=== PATIENT | female | born 1990 | race Caucasian/White ===

== ENCOUNTER 2023-11-15 00:19 | Emergency (ER) | payer OTHER, SELFPAY ==
[2023-11-15 00:25] VITALS: BP 130/80
--- NOTE | 2023-11-15 00:39 | ED.GENMED ---
History of Present Illness
General
Chief Complaint: Eye Problems
Source: patient
Exam Limitations: none
Time Seen by Provider: 11/15/23 00:30
Travel History
Have you had any contact with someone who has COVID-19?: No
Do you have any symptoms of coronavirus? Fever > 100 degrees, chills, cough, shortness of breath, sore throat, loss of taste or smell, muscle aches, or headache?: No
History of Present Illness
History of Present Illness:
See MDM
Past History
Past History
ED Past Medical History: Hypothyroidism
ED Past Surgical History: Gynecological
Social History
Tobacco: Non-smoker
Alcohol: None
Phy Exam
Physical Exam
Physical Exam:
See MDM
Course
Orders/Labs/Results
Orders:
Orders
11/15/23 00:39
Ciprofloxacin HCl [Ciloxan 0.3% Ophthalmic Solution] See Dose Instructions OPHTH NOW STA
Vital Signs
Initial and Last Documented VS:
Initial Vital Signs
Temp Pulse Resp BP Pulse Ox
98.2 F 84 22 130/80 100
11/15/23 00:25 11/15/23 00:25 11/15/23 00:25 11/15/23 00:25 11/15/23 00:25
Last Documented Vital Signs
Temp Pulse Resp BP Pulse Ox
98.2 F 84 22 130/80 100
11/15/23 00:25 11/15/23 00:25 11/15/23 00:25 11/15/23 00:25 11/15/23 00:25
MDM/Problems Addressed
Differential Diagnosis Includes:
HPI and MDM Narrative:
33-year-old female presenting with right eye pain. Patient was taking her contacts out and believes she may have scratched her eye. She states it is mildly blurry but appears unconcerned with this. Patient is worried she could have scratched her
eye.
On exam, patient is well-appearing nontoxic. Tetracaine was placed immediately with immediate resolution of symptoms.
Physical exam
General: Well appearing and non-toxic
HEENT: protecting airway. Pupils equal and reactive.. Mild central corneal abrasion with fluorescein uptake. Negative Nayeli sign.
Neck: appears supple
CV: No evidence of cyanosis
Resp: No accessory muscle use
Abd: Non-distended
Extremities: No deformities
Neuro: alert
Psych: Normal affect
Skin: Intact
Problems Addressed including Acute and Chronic Conditions affecting care:
1. Corneal abrasion
Acuity: acute
Prognosis: stable
Details: Given that she wears contacts, will cover for Pseudomonas. Will start ciprofloxacin ophthalmologic solution
Differential Diagnosis (but not limited to): Corneal abrasion, corneal ulcer
Drug therapy (if applicable): OTC meds, please see d/c instruction regarding Rx drugs
Amount and/or Complexity of Data Reviewed
Clinical info obtained from: Patient
External data reviewed: N/A
Labs I independently reviewed (but not limited to): N/A
Radiology: N/A
Pulse Ox: not hypoxic
EKG independently reviewed: N/A
Pre Owned Sales Manager: N/A
Critical Care: N/A
Risk of Complication:
Social Determinants of health: Good social support
Discussed with other providers: N/A
Escalation of Care includes Admit/Obs: After being observed in the Emergency Department, pt stable for discharge.
Occasional wrong word or 'sound a like' substitutions may have occurred due to the inherent limitations of voice recognition software. Read the chart carefully and recognize, using context, where substitutions have occurred.
*Critical Care Note
Total Time (30-74mins, 75-104mins- exclusive of procedures): Not Applicable
ED Attending Note
-
Portions of this chart may have been created with voice recognition software.� Occasional wrong word or��sound alike� substitutions may have occurred due to the inherent limitations of voice recognition software.
Discharge Plan
Departure
Patient Disposition: Home (Routine Discharge)
Date of Disposition: 11/15/23
Time of Disposition: 00:39
Patient with high blood pressure during this ER visit?: No
Discharge Problem:
Corneal abrasion, right
Instructions: Corneal Abrasion (DC)
Prescriptions:
No Action
levothyroxine 88 MCG tablet
88 mcg PO DAILY
multivitamin with folic acid [Tab-A-Vianey] 1 TABLET tablet
1 tab PO HS
sennosides-docusate sodium 8.6-50 mg Tablet
1 tab PO DAILYPRN PRN (Reason: constipation) Qty: 0 0RF
acetaminophen 325 mg Tablet
650 mg PO Q4HPRN PRN (Reason: mild pain) Qty: 0 0RF
ibuprofen 600 mg Tablet
400 mg PO Q4HPRN PRN (Reason: moderate pain/cramps) Qty: 0 0RF
Activity Restrictions/Additional Instructions:
Please use 2 drops in your right eye 4 times daily for the next week. Please call to make an appointment with your diet supervisor. Avoid using contact lenses during this next week. Return for worsening symptoms.
Interventions
Interventions:
*Risk Screen - Suicide Last Done: 11/15/23 00:25
*General Assessment Last Done: 11/15/23 00:32
*Neglect/Abuse Screening Last Done: 11/15/23 00:25
ED- Fall Risk Assessment Last Done: 11/15/23 00:33
*ED COVID-19 Vaccine History Last Done: 11/15/23 00:32
Discharge Date and Time
Print Language: SRI LANKAN
[2023-11-15] MEDS: CILOXAN 0.3% OPHTHALMIC SOLUTION 2 DROP OPHTH (01:15)
== END 2023-11-15 01:18 | disposition home or self-care (01) ==
LOC: EMR 00:19
PROVIDERS: EMERGENCY PHYSICIAN Student in an Organized Health Care Education/Training Program; FAMILY PHYSICIAN Family Medicine
DX: S05.01XA Injury of conjunctiva and corneal abrasion without foreign body, right eye, initial encounter (principal); X58.XXXA Exposure to other specified factors, initial encounter; E03.9 Hypothyroidism, unspecified
CPT/HCPCS: 99282

== ENCOUNTER → 2024-01-27 11:47 | Outpatient (REF) | payer OTHER, SELFPAY | LOC: WDC 11:47 | PROVIDERS: ATTENDING PHYSICIAN Nurse Practitioner Adult Health; FAMILY PHYSICIAN Family Medicine | DX: Z12.31 Encounter for screening mammogram for malignant neoplasm of breast (principal); Z80.3 Family history of malignant neoplasm of breast | CPT/HCPCS: 77063; 77067 ==

== ENCOUNTER → 2024-02-10 10:21 | Outpatient (REF) | payer OTHER, SELFPAY | LOC: WDC 10:21 | PROVIDERS: ATTENDING PHYSICIAN Nurse Practitioner Adult Health; FAMILY PHYSICIAN Family Medicine | DX: R92.8 Other abnormal and inconclusive findings on diagnostic imaging of breast (principal) | CPT/HCPCS: 76642 ==

== ENCOUNTER → 2024-08-17 13:35 | Outpatient (REF) | payer OTHER, SELFPAY | LOC: WDC 13:35 | PROVIDERS: ATTENDING PHYSICIAN Nurse Practitioner Adult Health | DX: R92.8 Other abnormal and inconclusive findings on diagnostic imaging of breast (principal); Z80.3 Family history of malignant neoplasm of breast | CPT/HCPCS: 77062; 77063; 77066; 77067 ==

== ENCOUNTER → 2025-02-01 12:59 | Outpatient (REF) | payer OTHER, SELFPAY | LOC: WDC 12:59 | PROVIDERS: ATTENDING PHYSICIAN Nurse Practitioner Adult Health; FAMILY PHYSICIAN Family Medicine | DX: Z12.31 Encounter for screening mammogram for malignant neoplasm of breast (principal) | CPT/HCPCS: 77063; 77067 ==